=== PATIENT | male | born 1970 | race Caucasian/White ===

== ENCOUNTER → 2019-04-19 08:41 | Outpatient (CLI) | payer OTHER | END | disposition home or self-care (01) | LOC: D.RAD 08:00 | PROVIDERS: ATTEND Internal Medicine Gastroenterology | DX: R13.10 Dysphagia, unspecified (principal); R11.10 Vomiting, unspecified ==

== ENCOUNTER 2019-05-03 09:31 | Outpatient (CLI) | payer OTHER | END 2019-05-03 11:50 | disposition home or self-care (01) | LOC: D.OPS 09:31 | PROVIDERS: ATTEND Internal Medicine Gastroenterology | DX: R13.10 Dysphagia, unspecified (principal) ==